=== PATIENT | female | born 1955 | race Caucasian/White ===

== ENCOUNTER 2023-06-14 13:24 | Outpatient (CLI) | payer OTHER | END 2023-06-14 13:25 | disposition home or self-care (01) | LOC: BICMAMMO 13:24 | PROVIDERS: ATTEND Family Medicine | DX: Z12.31 Encounter for screening mammogram for malignant neoplasm of breast (principal); Z80.3 Family history of malignant neoplasm of breast | CPT/HCPCS: 77063; 77067 ==

== ENCOUNTER 2023-12-10 10:51 | Outpatient (CLI) | payer OTHER ==
[2023-12-10 12:29] LABS: #Eosinphils 0.29 10x3/uL (0.0-0.5); #Monocytes 0.97 10x3/uL (0.0-1.1); #Neutrophils 5.42 10x3/uL (1.5-8.4); %Eosinophils 2.8 % (0.0-6.0); %Lymphocytes 34.8 % (18.0-47.0); %Monocytes 9.3 % (0.0-10.0); %Neutrophils 51.7 % (40.0-75.0); Hematocrit 38.3 % (34.9-44.5); Hemoglobin 12.9 g/dL (12.0-15.5); Mean Corpuscular HGB CONC 33.7 g/dL (32.0-36.0); Mean Corpuscular Hemoglobin 31.1 pg (27.0-33.0); Mean Corpuscular Volume 92.3 fl (81.6-98.3); Platelet Count 279 10x3/uL (150-450); RBC Distribution Width 12.3 % (11.5-14.5); Red Blood Cell (RBC) Count 4.15 10x6/uL (3.90-5.03); White Blood Cell (WBC) Count 10.5 10x3/uL (3.5-10.5)
== END 2023-12-10 10:52 | disposition home or self-care (01) ==
LOC: LABBT 10:51
PROVIDERS: ATTEND Orthopaedic Surgery Hand Surgery
DX: Z01.818 Encounter for other preprocedural examination (principal); M67.431 Ganglion, right wrist
CPT/HCPCS: 85025; 93005; 93010